=== PATIENT | female | born 1980 | race Hispanic/Latino ===

== ENCOUNTER 2021-04-26 14:15 | Emergency (ER) | payer OTHER ==
[2021-04-26] MEDS ORDERED: LORAZEPAM 2 MG/ML 1 ML VIAL IVP SCH (14:30)
[2021-04-26 14:34] LABS: APPEARANCE,URINE CLOUDY (CLEAR); BILIRUBIN,URINE NEGATIVE (NEGATIVE); COLOR,URINE YELLOW (YELLOW); GLUCOSE, URINE (UA) NEGATIVE (NEGATIVE); KETONES,URINE NEGATIVE (NEGATIVE); LEUKOCYTE ESTERASE ,URINE SMALL (NEGATIVE); NITRATE,URINE NEGATIVE (NEGATIVE); OCCULT BLOOD,URINE MODERATE (NEGATIVE); PROTEIN,URINE 100 mg/dL (NEGATIVE); UROBILINOGEN,URINE 0.2 mg/dL (0.2-1.0)
[2021-04-26] MEDS ORDERED: LEVETIRACETAM 500 MG/5 ML SD VIAL IV ONE (14:34)
[2021-04-26] MEDS ORDERED: LORAZEPAM 2 MG/ML 1 ML VIAL ONE (14:35)
[2021-04-26] MEDS ORDERED: 0.9%NACL 100ML 100 ML ONE (14:36)
[2021-04-26] MEDS ORDERED: 0.9%NACL 1000ML 1,000 ML IV ONE (14:39)
[2021-04-26 14:43] LABS: AMPHET/METH SCREEN,URINE NEGATIVE (NEGATIVE); BARBITURATE SCREEN, URINE NEGATIVE (NEGATIVE); BENZODIAZEPINES SCREEN,URINE NEGATIVE (NEGATIVE); CANNABINOID SCREEN,URINE NEGATIVE (NEGATIVE); COCAINE SCREEN,URINE NEGATIVE (NEGATIVE); OPIATE SCREEN,URINE NEGATIVE (NEGATIVE); PHENCYCLIDINE SCREEN,URINE NEGATIVE (NEGATIVE)
[2021-04-26 14:44] LABS: BACTERIA,URINE Few /HPF (None Seen); SQUAMOUS EPITHELIAL CELL,UR Few /HPF (0-2); WBC,URINE 26-50 /HPF (0-1)
[2021-04-26 14:45] LABS: TRANSITIONAL EPI CELLS,URINE Rare /HPF (None Seen)
[2021-04-26 14:47] LABS: EOSINOPHILS % (AUTO) 1.3 % (0.0-8.0); HEMATOCRIT 31.6 % (36-48); LYMPHOCYTES % (AUTO) 2.9 % (21.0-51.0); MEAN CORPUSCULAR HEMOGLOBIN 29.9 pg (27.0-33.0); MEAN CORPUSCULAR HGB CONC 34.8 g/dL (32.0-36.0); MEAN CORPUSCULAR VOLUME 85.9 fL (79-99); MONOCYTES % (AUTO) 2.9 % (3.0-13.0); NEUTROPHILS % (AUTO) 86.1 % (40.0-77.0); NUCLEATED RED BLOOD CELLS 0.3 % (0.0-0.19); PLATELET COUNT (AUTO) 19 K/uL (130-400); RED BLOOD CELL COUNT(AUTO) 3.68 MIL/uL (4.00-5.50); RED CELL DISTRIBUTION WIDTH 14.6 % (11.0-15.5); WHITE BLOOD COUNT (AUTO) 20.9 K/uL (4.8-10.8)
[2021-04-26 14:56] LABS: HCG,QUAL RESULT NEGATIVE (NEGATIVE)
[2021-04-26] MEDS ORDERED: CEFTRIAXONE 1G VIAL IVP SCH (15:00)
[2021-04-26] MEDS ORDERED: 0.9%NACL 1000ML 1,000 ML IV SCH ×2 (15:00→21:30)
[2021-04-26 15:07] LABS: ALBUMIN 2.3 g/dL (3.5-5.0); BILIRUBIN,TOTAL 1.9 mg/dL (0.2-1.0); CREATININE 3.3 mg/dL (0.5-1.5); POTASSIUM 3.6 mmol/L (3.5-5.1); TOTAL PROTEIN, SERUM 6.3 g/dL (6.0-8.3)
[2021-04-26] MEDS ORDERED: SODIUM CHLORIDE 3% 500 ML IV SCH (15:30)
[2021-04-26] MEDS ORDERED: 0.9%NACL 50ML 50 ML IV ONE (15:41)
[2021-04-26] MEDS ORDERED: MAG/ALUM/SIMETH 30 ML UDCUP PO ONE (17:30)
[2021-04-26] MEDS ORDERED: MAG/ALUM/SIMETH 30 ML UDCUP ONE (17:33)
[2021-04-26] MEDS ORDERED: LEVETIRACETAM 1,500 MG in 0.9%NACL 100ML 100 ML IV SCH (22:00)
[2021-04-26 23:55] VITALS: BP 108/48
== END 2021-04-27 01:40 | disposition short-term general hospital (02) ==
LOC: EDH 14:15
DX: G40.909 Epilepsy, unspecified, not intractable, without status epilepticus (principal); N39.0 Urinary tract infection, site not specified; E87.1 Hypo-osmolality and hyponatremia; N28.9 Disorder of kidney and ureter, unspecified; Z20.822 Contact with and (suspected) exposure to COVID-19; F41.9 Anxiety disorder, unspecified
CPT/HCPCS: 36415; 70450; 71045; 80053; 80305; 81001; 81025; 84484; 85025; 86140; 87088; 87635; 93005; 96365; 96366; 96375; 96376; 99285; C9803; J0696; J1953; J2060; J7030 ×2

== ENCOUNTER 2021-07-01 10:56 | Emergency (ER) | payer OTHER ==
[~2021-07-01] VITALS: Ht 160 cm; Wt 63.5 kg
[2021-07-01 11:23] LABS: APPEARANCE,URINE CLEAR (CLEAR); BASOPHILS % (AUTO) 1.9 % (0.0-5.0); BILIRUBIN,URINE NEGATIVE (NEGATIVE); COLOR,URINE YELLOW (YELLOW); EOSINOPHILS % (AUTO) 2.9 % (0.0-8.0); GLUCOSE, URINE (UA) NEGATIVE (NEGATIVE); HEMATOCRIT 35.7 % (36-48); KETONES,URINE NEGATIVE (NEGATIVE); LEUKOCYTE ESTERASE ,URINE NEGATIVE (NEGATIVE); LYMPHOCYTES % (AUTO) 51.9 % (21.0-51.0); MEAN CORPUSCULAR HEMOGLOBIN 30.5 pg (27.0-33.0); MEAN CORPUSCULAR HGB CONC 32.5 g/dL (32.0-36.0); MEAN CORPUSCULAR VOLUME 93.9 fL (79-99); MONOCYTES % (AUTO) 8.5 % (3.0-13.0); NEUTROPHILS % (AUTO) 34.6 % (40.0-77.0); NITRATE,URINE NEGATIVE (NEGATIVE); OCCULT BLOOD,URINE NEGATIVE (NEGATIVE); PLATELET COUNT (AUTO) 82 K/uL (130-400); PROTEIN,URINE NEGATIVE (NEGATIVE); RED CELL DISTRIBUTION WIDTH 13.6 % (11.0-15.5); UROBILINOGEN,URINE 0.2 mg/dL (0.2-1.0); WHITE BLOOD COUNT (AUTO) 4.8 K/uL (4.8-10.8)
[2021-07-01 11:29] LABS: HCG,QUAL RESULT NEGATIVE (NEGATIVE)
[2021-07-01 11:30] LABS: AMPHET/METH SCREEN,URINE NEGATIVE (NEGATIVE); BARBITURATE SCREEN, URINE NEGATIVE (NEGATIVE); BENZODIAZEPINES SCREEN,URINE NEGATIVE (NEGATIVE); CANNABINOID SCREEN,URINE NEGATIVE (NEGATIVE); COCAINE SCREEN,URINE NEGATIVE (NEGATIVE); OPIATE SCREEN,URINE NEGATIVE (NEGATIVE); PHENCYCLIDINE SCREEN,URINE NEGATIVE (NEGATIVE)
[2021-07-01 11:46] LABS: CREATININE 0.7 mg/dL (0.5-1.5); POTASSIUM 3.5 mmol/L (3.5-5.1)
[2021-07-01 11:50] LABS: ALBUMIN 3.4 g/dL (3.5-5.0); BILIRUBIN,TOTAL 0.6 mg/dL (0.2-1.0); TOTAL PROTEIN, SERUM 8.3 g/dL (6.0-8.3)
[2021-07-01] MEDS ORDERED: 0.9%NACL 1000ML 1,000 ML IV ONE (16:30)
[2021-07-01 19:13] VITALS: BP 134/81
== END 2021-07-01 19:23 | disposition home or self-care (01) ==
LOC: EDH 10:56
DX: F10.229 Alcohol dependence with intoxication, unspecified (principal); R55 Syncope and collapse; R56.9 Unspecified convulsions; D69.6 Thrombocytopenia, unspecified; F41.9 Anxiety disorder, unspecified; Y90.8 Blood alcohol level of 240 mg/100 ml or more
CPT/HCPCS: 36415; 80053; 80305; 81003; 81025; 85025; 96360; 96361; 99285; J7030

== ENCOUNTER 2022-01-16 22:57 | Emergency (ER) | payer OTHER ==
[~2022-01-16] VITALS: Ht 157.5 cm; Wt 68.0 kg
[2022-01-16 23:21] LABS: BASOPHILS % (AUTO) 1.1 % (0.0-5.0); EOSINOPHILS % (AUTO) 3.1 % (0.0-8.0); HEMATOCRIT 31.6 % (36-48); LYMPHOCYTES % (AUTO) 46.4 % (21.0-51.0); MEAN CORPUSCULAR HEMOGLOBIN 27.3 pg (27.0-33.0); MEAN CORPUSCULAR HGB CONC 33.2 g/dL (32.0-36.0); MEAN CORPUSCULAR VOLUME 82.3 fL (79-99); MONOCYTES % (AUTO) 4.4 % (3.0-13.0); NEUTROPHILS % (AUTO) 44.7 % (40.0-77.0); PLATELET COUNT (AUTO) 186 K/uL (130-400); RED BLOOD CELL COUNT(AUTO) 3.84 MIL/uL (4.00-5.50)
[2022-01-16 23:24] LABS: APPEARANCE,URINE CLEAR (CLEAR); BILIRUBIN,URINE NEGATIVE (NEGATIVE); COLOR,URINE COLORLESS (YELLOW); GLUCOSE, URINE (UA) NEGATIVE (NEGATIVE); KETONES,URINE NEGATIVE (NEGATIVE); LEUKOCYTE ESTERASE ,URINE NEGATIVE Leu/uL (NEGATIVE); NITRATE,URINE NEGATIVE (NEGATIVE); OCCULT BLOOD,URINE NEGATIVE (NEGATIVE); PROTEIN,URINE 50 mg/dL (NEGATIVE); UROBILINOGEN,URINE 0.2 mg/dL (0.2-1.0)
[2022-01-16 23:29] LABS: CREATININE 0.7 mg/dL (0.5-1.5); POTASSIUM 3.2 mmol/L (3.5-5.1)
[2022-01-16 23:35] LABS: ALBUMIN 3.1 g/dL (3.5-5.0); TOTAL PROTEIN, SERUM 8.2 g/dL (6.0-8.3)
[2022-01-17] MEDS ORDERED: POTASSIUM BICARB/CIT AC 25 MEQ TABLET.EFF ONE ×2 (00:08→00:14)
[2022-01-17] MEDS ORDERED: 0.9%NACL 1000ML 2,000 ML IV ONE (00:14)
[2022-01-17 00:53] LABS: ACETAMINOPHEN < 1 mcg/mL (10-30); SALICYLATE < 2.8 mg/dL (2.8-20.0)
[2022-01-17] MEDS ORDERED: POTASSIUM BICARB/CIT AC 25 MEQ TABLET.EFF PO ONE (01:00)
[2022-01-17] MEDS ORDERED: 0.9%NACL 1000ML 1,000 ML IV SCH ×2 (01:00)
[2022-01-17 01:10] VITALS: BP 129/78
[2022-01-17 01:16] LABS: AMPHET/METH SCREEN,URINE NEGATIVE (NEGATIVE); BARBITURATE SCREEN, URINE NEGATIVE (NEGATIVE); BENZODIAZEPINES SCREEN,URINE NEGATIVE (NEGATIVE); CANNABINOID SCREEN,URINE NEGATIVE (NEGATIVE); COCAINE SCREEN,URINE NEGATIVE (NEGATIVE); PHENCYCLIDINE SCREEN,URINE NEGATIVE (NEGATIVE)
== END 2022-01-17 01:29 | disposition left against medical advice (07) ==
LOC: EDH 22:57 → EDBD 22:57 → EDH 01-17 01:29
DX: G40.909 Epilepsy, unspecified, not intractable, without status epilepticus (principal); F10.229 Alcohol dependence with intoxication, unspecified; Z20.822 Contact with and (suspected) exposure to COVID-19; I10 Essential (primary) hypertension; F41.9 Anxiety disorder, unspecified
CPT/HCPCS: 99285; 71045; 87635; 83615; 84484; 80053; 80305; 85025; 83605; 36415; 93005; 84145; 81003; 96360; G0481; C9803; J7030

== ENCOUNTER 2022-04-27 18:13 | Emergency (ER) | payer OTHER ==
[2022-04-27 19:31] LABS: BASOPHILS % (AUTO) 0.5 % (0.0-5.0); EOSINOPHILS % (AUTO) 0.2 % (0.0-8.0); HEMATOCRIT 31.6 % (36-48); LYMPHOCYTES % (AUTO) 5.7 % (21.0-51.0); MEAN CORPUSCULAR HEMOGLOBIN 27.1 pg (27.0-33.0); MEAN CORPUSCULAR HGB CONC 33.2 g/dL (32.0-36.0); MEAN CORPUSCULAR VOLUME 81.7 fL (79-99); MONOCYTES % (AUTO) 10.8 % (3.0-13.0); NEUTROPHILS % (AUTO) 81.4 % (40.0-77.0); PLATELET COUNT (AUTO) 86 K/uL (130-400); RED BLOOD CELL COUNT(AUTO) 3.87 MIL/uL (4.00-5.50); RED CELL DISTRIBUTION WIDTH 20.7 % (11.0-15.5); WHITE BLOOD COUNT (AUTO) 16.6 K/uL (4.8-10.8)
[2022-04-27 19:40] LABS: CREATININE 0.8 mg/dL (0.5-1.5); POTASSIUM 3.3 mmol/L (3.5-5.1)
[2022-04-27 19:44] LABS: ALBUMIN 2.1 g/dL (3.5-5.0); TOTAL PROTEIN, SERUM 7.5 g/dL (6.0-8.3)
[2022-04-27] MEDS ORDERED: POTASSIUM BICARB/CIT AC 25 MEQ TABLET.EFF PO ONE (20:30)
[2022-04-27 21:54] LABS: AMPHET/METH SCREEN,URINE NEGATIVE (NEGATIVE); BARBITURATE SCREEN, URINE NEGATIVE (NEGATIVE); BENZODIAZEPINES SCREEN,URINE NEGATIVE (NEGATIVE); CANNABINOID SCREEN,URINE NEGATIVE (NEGATIVE); COCAINE SCREEN,URINE NEGATIVE (NEGATIVE); OPIATE SCREEN,URINE NEGATIVE (NEGATIVE); PHENCYCLIDINE SCREEN,URINE NEGATIVE (NEGATIVE)
[2022-04-27 23:16] LABS: APPEARANCE,URINE CLEAR (CLEAR); BILIRUBIN,URINE NEGATIVE (NEGATIVE); COLOR,URINE YELLOW (YELLOW); GLUCOSE, URINE (UA) NEGATIVE (NEGATIVE); KETONES,URINE NEGATIVE (NEGATIVE); LEUKOCYTE ESTERASE ,URINE NEGATIVE Leu/uL (NEGATIVE); NITRATE,URINE NEGATIVE (NEGATIVE); OCCULT BLOOD,URINE NEGATIVE (NEGATIVE); PH,URINE 6.5 (5.0-8.0); PROTEIN,URINE 100 mg/dL (NEGATIVE); UROBILINOGEN,URINE 0.2 mg/dL (0.2-1.0)
[2022-04-27 23:20] LABS: BACTERIA,URINE RARE /HPF (None Seen); RBC,URINE 0-1 /HPF (0-1); SQUAMOUS EPITHELIAL CELL,UR FEW /HPF (0-2)
[2022-04-28 00:10] VITALS: BP 120/79
[2022-04-28] MEDS ORDERED: IBUPROFEN 600 MG TABLET PO ONE (00:30)
[2022-04-28] MEDS ORDERED: IBUP-2070 PO (00:45)
== END 2022-04-28 00:59 | disposition home or self-care (01) ==
LOC: EDH 18:13
DX: S49.92XA Unspecified injury of left shoulder and upper arm, initial encounter (principal); J10.1 Influenza due to other identified influenza virus with other respiratory manifestations; Z20.822 Contact with and (suspected) exposure to COVID-19; X58.XXXA Exposure to other specified factors, initial encounter; Y93.89 Activity, other specified; Y92.89 Other specified places as the place of occurrence of the external cause; Y99.8 Other external cause status
CPT/HCPCS: 99285; 71045; 87635; 82550; 80053; 80305; 84703; 85025; 87040 ×2; 87804 ×2; 83605; 36415; 73630 ×2; 73060; 73030 ×2; 81001; C9803

== ENCOUNTER 2022-10-17 14:23 | Emergency (ER) | payer OTHER ==
[~2022-10-17] VITALS: Ht 167.6 cm; Wt 74.8 kg
[~2022-10-17 14:23] MED LIST: IBUP-2070 PO
[2022-10-17 15:33] LABS: BASOPHILS % (AUTO) 2.1 % (0.0-5.0); EOSINOPHILS % (AUTO) 1.3 % (0.0-8.0); HEMATOCRIT 34.3 % (36-48); MEAN CORPUSCULAR HEMOGLOBIN 30.9 pg (27.0-33.0); MEAN CORPUSCULAR HGB CONC 32.9 g/dL (32.0-36.0); MEAN CORPUSCULAR VOLUME 93.7 fL (79-99); MONOCYTES % (AUTO) 7.9 % (3.0-13.0); NEUTROPHILS % (AUTO) 56.7 % (40.0-77.0); PLATELET COUNT (AUTO) 58 K/uL (130-400); RED BLOOD CELL COUNT(AUTO) 3.66 MIL/uL (4.00-5.50); RED CELL DISTRIBUTION WIDTH 16.6 % (11.0-15.5); WHITE BLOOD COUNT (AUTO) 3.8 K/uL (4.8-10.8)
[2022-10-17 15:52] LABS: CREATININE 0.7 mg/dL (0.5-1.5); POTASSIUM 3.6 mmol/L (3.5-5.1)
[2022-10-17 15:54] LABS: ALBUMIN 2.7 g/dL (3.5-5.0); TOTAL PROTEIN, SERUM 8.5 g/dL (6.0-8.3)
[2022-10-17] MEDS ORDERED: LACTATED RINGERS 1000ML 1,000 ML IV STA (16:06)
[2022-10-17 18:48] VITALS: BP 140/76
== END 2022-10-17 19:21 | disposition home or self-care (01) ==
LOC: EDH 14:23
DX: S09.8XXA Other specified injuries of head, initial encounter (principal); F10.129 Alcohol abuse with intoxication, unspecified; F10.10 Alcohol abuse, uncomplicated; M79.652 Pain in left thigh; I10 Essential (primary) hypertension; F41.9 Anxiety disorder, unspecified; F32.A Depression, unspecified; Y08.89XA Assault by other specified means, initial encounter; Y93.89 Activity, other specified; Y92.89 Other specified places as the place of occurrence of the external cause; Y99.8 Other external cause status
CPT/HCPCS: 99284; 96360; 70450; 71045; 96361; 80053; 85025; 36415; J7120

== ENCOUNTER 2023-01-14 17:00 | Inpatient (IN) | payer OTHER ==
[~2023-01-14] VITALS: Ht 157.5 cm; Wt 67.0 kg
[2023-01-14 17:25] LABS: BASOPHILS # (AUTO) 0.05 K/uL (0.00-0.20); BASOPHILS % (AUTO) 1.2 % (0.0-5.0); EOSINOPHILS # (AUTO) 0.07 K/uL (0.00-0.70); EOSINOPHILS % (AUTO) 1.7 % (0.0-8.0); HEMATOCRIT 27.4 % (36-48); IMMATURE GRANULOCYTE ABSOLUTE 0.01 K/uL (0-1); LYMPHOCYTES # (AUTO) 1.1 K/uL (1.0-4.8); LYMPHOCYTES % (AUTO) 27.8 % (21.0-51.0); MEAN CORPUSCULAR HEMOGLOBIN 33.3 pg (27.0-33.0); MEAN CORPUSCULAR HGB CONC 34.3 g/dL (32.0-36.0); MEAN CORPUSCULAR VOLUME 97.2 fL (79-99); MONOCYTES # (AUTO) 0.3 K/uL (0.1-1.0); MONOCYTES % (AUTO) 8.1 % (3.0-13.0); NEUTROPHILS # (AUTO) 2.5 K/uL (1.8-7.7); PLATELET COUNT (AUTO) 25 K/uL (130-400); RED BLOOD CELL COUNT(AUTO) 2.82 MIL/uL (4.00-5.50); RED CELL DISTRIBUTION WIDTH 16.4 % (11.0-15.5); WHITE BLOOD COUNT (AUTO) 4.1 K/uL (4.8-10.8)
[2023-01-14 17:34] LABS: CREATININE 0.9 mg/dL (0.5-1.5); POTASSIUM 3.2 mmol/L (3.5-5.1)
[2023-01-14 17:38] LABS: INR 1.44 (0.85-1.15); PROTHROMBIN TIME 16.3 SEC (9.6-11.6)
[2023-01-14 17:39] LABS: ALBUMIN 2.3 g/dL (3.5-5.0); BILIRUBIN,TOTAL 4.1 mg/dL (0.2-1.0); TOTAL PROTEIN, SERUM 7.6 g/dL (6.0-8.3)
[2023-01-14 17:55] LABS: ADD UA MICROSCOPIC YES; APPEARANCE,URINE CLEAR (CLEAR); BILIRUBIN,URINE NEGATIVE (NEGATIVE); COLOR,URINE YELLOW (YELLOW); GLUCOSE, URINE (UA) NEGATIVE (NEGATIVE); KETONES,URINE NEGATIVE (NEGATIVE); LEUKOCYTE ESTERASE ,URINE NEGATIVE Leu/uL (NEGATIVE); NITRATE,URINE NEGATIVE (NEGATIVE); OCCULT BLOOD,URINE NEGATIVE (NEGATIVE); PROTEIN,URINE 20 mg/dL (NEGATIVE); UROBILINOGEN,URINE 0.2 mg/dL (0.2-1.0)
[2023-01-14 17:56] LABS: SQUAMOUS EPITHELIAL CELL,UR RARE /HPF (0-2); WBC,URINE 0-1 /HPF (0-1)
[2023-01-14] MEDS: OXYMETAZOLINE HCL SPRAY 15 ML BOTTLE EN SCH (20:19)
[2023-01-14] MEDS ORDERED: IOHEXOL-350 75 ML VIAL IV ONE (20:21)
[2023-01-14] MEDS ORDERED: PHYTONADIONE 10 MG/1 ML AMP SQ ONE (20:30)
[2023-01-14] MEDS ORDERED: 0.9%NACL 1000ML 1,000 ML IV ONE (20:30)
[2023-01-14 21:03] LABS: SALICYLATE < 2.8 mg/dL (2.8-20.0)
[2023-01-14 21:04] LABS: ACETAMINOPHEN < 1 mcg/mL (10-30)
[2023-01-14 21:05] LABS: ALCOHOL, BLOOD 423 mg/dL (0-10)
[2023-01-14] MEDS ORDERED: ONDANSETRON 4MG INJ IV PRN (22:30)
[2023-01-14] MEDS ORDERED: PHARMACY COMMUNICATION MISC PRN (22:30)
[2023-01-14] MEDS ORDERED: HYDROCODONE/ACETAMINOPHEN 5/325 MG TAB PO PRN (22:30)
[2023-01-14] MEDS ORDERED: ACETAMINOPHEN 325 MG TAB PO PRN (22:30)
[2023-01-14] MEDS ORDERED: HYDROMORPHONE 1 MG INJ IV PRN (22:30)
[2023-01-14] MEDS ORDERED: OCTREOTIDE ACETATE 100 MCG/ML AMP IV ONE (22:30)
[2023-01-15] VITALS (9 sets, daily range): BP systolic 96–149; BP diastolic 58–89; PULSE 75–89; RESP 18–20; O2SAT 98–99
[2023-01-15] MEDS ORDERED: OCTREOTIDE ACETATE 200 MCG/ML 5 ML VIAL ONE (00:47)
[2023-01-15] MEDS ORDERED: M.V.I. IV [ADULT] 10 ML VIAL IV ONE (00:50)
[2023-01-15] MEDS ORDERED: THIAMINE HCL 100 MG/ML 2ML VIAL ONE (00:54)
[2023-01-15] MEDS ORDERED: HYDR-3421 PO (00:59)
[2023-01-15] MEDS ORDERED: FLUO20CA30 PO (00:59)
[2023-01-15] MEDS: CHLORDIAZEPOXIDE HCL 25 MG CAP PO SCH ×2 (01:37→05:52)
[2023-01-15] MEDS: THIAMINE HCL 100 MG, FOLIC ACID 1 MG, M.V.I. IV [ADULT] 10 ML in 0.9%NACL 1000ML 1,000 ML IV SCH ×2 (01:37→17:55)
[2023-01-15] MEDS: OCTREOTIDE ACETATE 1,250 MCG in 0.9% NACL 250ML 250 ML IV SCH (01:38)
[2023-01-15 02:09] LABS: BASOPHILS # (AUTO) 0.06 K/uL (0.00-0.20); BASOPHILS % (AUTO) 1.3 % (0.0-5.0); EOSINOPHILS % (AUTO) 2.1 % (0.0-8.0); HEMATOCRIT 28.4 % (36-48); IMMATURE GRANULOCYTE ABSOLUTE 0.02 K/uL (0-1); LYMPHOCYTES % (AUTO) 41.9 % (21.0-51.0); MEAN CORPUSCULAR HEMOGLOBIN 33.4 pg (27.0-33.0); MEAN CORPUSCULAR HGB CONC 34.2 g/dL (32.0-36.0); MEAN CORPUSCULAR VOLUME 97.9 fL (79-99); MONOCYTES # (AUTO) 0.3 K/uL (0.1-1.0); MONOCYTES % (AUTO) 6.9 % (3.0-13.0); NEUTROPHILS # (AUTO) 2.3 K/uL (1.8-7.7); NEUTROPHILS % (AUTO) 47.4 % (40.0-77.0); PLATELET COUNT (AUTO) 31 K/uL (130-400); RED CELL DISTRIBUTION WIDTH 16.7 % (11.0-15.5); WHITE BLOOD COUNT (AUTO) 4.8 K/uL (4.8-10.8)
[2023-01-15 02:26] LABS: CREATININE 0.7 mg/dL (0.5-1.5); MAGNESIUM 1.1 mg/dL (1.80-2.40); PHOSPHORUS 3.8 mg/dL (2.5-4.9); POTASSIUM 3.4 mmol/L (3.5-5.1)
[2023-01-15 02:44] LABS: % IRON SATURATION 49.1 % (22-44)
[2023-01-15] MEDS: ACETAMINOPHEN 325 MG TAB PO PRN ×2 (06:30→15:02)
[2023-01-15 06:57] LABS: HEMATOCRIT 27.1 % (36-48)
[2023-01-15] MEDS: PANTOPRAZOLE 40 MG/VIAL IVP SCH ×2 (08:51→19:24)
[2023-01-15 13:24] LABS: HEMATOCRIT 27.3 % (36-48)
[2023-01-15] MEDS: KCL 20 MEQ ERTAB PO PRN ×2 (15:39→18:21)
[2023-01-15] MEDS: MAGNESIUM 2GM PREMIX 50ML 50 ML IV PRN (16:28)
[2023-01-15 18:18] LABS: HEMATOCRIT 27.1 % (36-48); MEAN CORPUSCULAR HGB CONC 33.2 g/dL (32.0-36.0); MEAN CORPUSCULAR VOLUME 102.3 fL (79-99); PLATELET COUNT (AUTO) 51 K/uL (130-400); RED BLOOD CELL COUNT(AUTO) 2.65 MIL/uL (4.00-5.50); RED CELL DISTRIBUTION WIDTH 16.6 % (11.0-15.5); WHITE BLOOD COUNT (AUTO) 2.8 K/uL (4.8-10.8)
[2023-01-15] MEDS: OXYMETAZOLINE HCL SPRAY 15 ML BOTTLE EN SCH (19:22)
[2023-01-15 20:03] LABS: BAND NEUTROPHILS % (MANUAL) 2 % (0-2); EOSINOPHILS % (MANUAL) 2 % (1-6); LYMPHOCYTES % (MANUAL) 14 % (22-44); MONOCYTES % (MANUAL) 3 % (2-9); SEGMENTED NEUTROPHILS % 79 % (40-70); TOTAL CELLS COUNTED 100
[2023-01-15 20:05] LABS: MAN.DIFF COMMENT-IMPRESSION MANUAL DIFFERENTIAL
[2023-01-15 20:07] LABS: PLATELET MORPHOLOGY COMMENT DECREASED
[2023-01-16] VITALS (24 sets, daily range): BP systolic 109–149; BP diastolic 60–90; PULSE 71–104; RESP 16–20; O2SAT 98
[2023-01-16] MEDS: THIAMINE HCL 100 MG, FOLIC ACID 1 MG, M.V.I. IV [ADULT] 10 ML in 0.9%NACL 1000ML 1,000 ML IV SCH ×2 (00:30→18:22)
[2023-01-16 00:42] LABS: HEMATOCRIT 27.5 % (36-48)
[2023-01-16 05:36] LABS: CREATININE 0.7 mg/dL (0.5-1.5); MAGNESIUM 0.8 mg/dL (1.80-2.40); POTASSIUM 3.7 mmol/L (3.5-5.1)
[2023-01-16] MEDS: PANTOPRAZOLE 40 MG/VIAL IVP SCH (08:50)
[2023-01-16] MEDS: OXYMETAZOLINE HCL SPRAY 15 ML BOTTLE EN SCH ×2 (09:07→18:45)
[2023-01-16] MEDS: OCTREOTIDE ACETATE 1,250 MCG in 0.9% NACL 250ML 250 ML IV SCH (09:07)
[2023-01-16] MEDS ORDERED: COMPOUND IV REFRIGERATED 1 EACH IVSOLN MISC PRN (09:30)
[2023-01-16] MEDS ORDERED: PROPOFOL 10 MG/ML 20ML VIAL IV ONE ×2 (12:44→12:49)
[2023-01-16] MEDS ORDERED: MIDAZOLAM HCL 1 MG/ML 2ML VIAL ONE (12:44)
[2023-01-16] MEDS: CHLORDIAZEPOXIDE HCL 25 MG CAP PO PRN (18:22)
[2023-01-16] MEDS: MAGNESIUM 2GM PREMIX 50ML 50 ML IV PRN (20:38)
[2023-01-16] MEDS: PANTOPRAZOLE 40 MG TAB DR PO SCH (20:38)
[2023-01-16] MEDS: LORAZEPAM 2 MG/ML 1 ML VIAL IVP PRN (22:39)
[2023-01-17] VITALS (7 sets, daily range): BP systolic 104–121; BP diastolic 62–85; PULSE 53–109; RESP 18–22; O2SAT 99
[2023-01-17] MEDS: LORAZEPAM 2 MG/ML 1 ML VIAL IVP PRN ×4 (01:39→22:42)
[2023-01-17] MEDS: CHLORDIAZEPOXIDE HCL 25 MG CAP PO PRN ×2 (02:10→09:49)
[2023-01-17] MEDS: OXYMETAZOLINE HCL SPRAY 15 ML BOTTLE EN SCH (07:52)
[2023-01-17] MEDS: PANTOPRAZOLE 40 MG TAB DR PO SCH ×2 (08:36→21:25)
[2023-01-17] MEDS: MAGNESIUM 2GM PREMIX 50ML 50 ML IV PRN (08:37)
[2023-01-17] MEDS: KCL 20 MEQ ERTAB PO PRN ×2 (08:37→16:11)
[2023-01-17 10:20] LABS: BASOPHILS # (AUTO) 0.03 K/uL (0.00-0.20); BASOPHILS % (AUTO) 0.9 % (0.0-5.0); EOSINOPHILS # (AUTO) 0.05 K/uL (0.00-0.70); EOSINOPHILS % (AUTO) 1.5 % (0.0-8.0); HEMATOCRIT 32.1 % (36-48); IMMATURE GRANULOCYTE ABSOLUTE 0.01 K/uL (0-1); LYMPHOCYTES # (AUTO) 0.6 K/uL (1.0-4.8); LYMPHOCYTES % (AUTO) 17.3 % (21.0-51.0); MEAN CORPUSCULAR HEMOGLOBIN 33.4 pg (27.0-33.0); MEAN CORPUSCULAR HGB CONC 33.6 g/dL (32.0-36.0); MEAN CORPUSCULAR VOLUME 99.4 fL (79-99); MONOCYTES # (AUTO) 0.3 K/uL (0.1-1.0); MONOCYTES % (AUTO) 9.1 % (3.0-13.0); NEUTROPHILS # (AUTO) 2.4 K/uL (1.8-7.7); NEUTROPHILS % (AUTO) 70.9 % (40.0-77.0); PLATELET COUNT (AUTO) 56 K/uL (130-400); RED BLOOD CELL COUNT(AUTO) 3.23 MIL/uL (4.00-5.50); WHITE BLOOD COUNT (AUTO) 3.4 K/uL (4.8-10.8)
[2023-01-17] MEDS ORDERED: LORAZEPAM 0.5 MG TABLET PO ONE (10:30)
[2023-01-17 10:44] LABS: POTASSIUM 3.4 mmol/L (3.5-5.1)
[2023-01-17 10:49] LABS: ALBUMIN 2.2 g/dL (3.5-5.0); BILIRUBIN,TOTAL 5.2 mg/dL (0.2-1.0); TOTAL PROTEIN, SERUM 7.4 g/dL (6.0-8.3)
[2023-01-17] MEDS: LACTULOSE 20 GM/30 ML UDCUP PO SCH ×3 (11:08→21:24)
[2023-01-17] MEDS: CEFTRIAXONE 2GM VIAL IVPB SCH (18:41)
[2023-01-17 18:49] LABS: SARS-CoV-2, RNA, NAAT NEGATIVE SARS CoV-2 (NEGATIVE)
[2023-01-17 19:05] LABS: ABG BASE EXCESS -2.3 mmol/L (-2.0-3.0); ABG HCO3 18.9 mmol/L (21.0-28.0); ABG OXYGEN SATURATION 93.4 % (95.0-99.0); ABG PCO2 23 mmHg (32-45); ABG PH 7.531 (7.35-7.450); CARBON MONOXIDE 0.3; HHb 6.5; PO2, ARTERIAL BG 67.4 mmHg (83.0-108.0); VENT MODE, BG ROOM AIR (ROOM AIR)
[2023-01-17 19:31] LABS: INFLUENZA TYPE A Negative For Type A (NEGATIVE); INFLUENZA TYPE B Negative For Type B (NEGATIVE)
[2023-01-17] MEDS ORDERED: 0.9%NACL 50ML IV SCH (20:30)
[2023-01-17] MEDS ORDERED: CALCIUM GLUC 1GM/10ML VIAL IVPB SCH (20:30)
[2023-01-17] MEDS ORDERED: THIAMINE HCL 100 MG/ML 2ML VIAL IVP ONE (20:30)
[2023-01-17] MEDS: SODIUM BICARB 8.4% 50ML SYRINGE IVP SCH (21:25)
[2023-01-18] VITALS (8 sets, daily range): BP systolic 110–141; BP diastolic 69–79; PULSE 91–111; RESP 18–20; O2SAT 93–99
[2023-01-18] MEDS: CHLORDIAZEPOXIDE HCL 25 MG CAP PO PRN (00:13)
[2023-01-18] MEDS: LORAZEPAM 2 MG/ML 1 ML VIAL IVP PRN ×3 (03:33→20:12)
[2023-01-18 04:22] LABS: BASOPHILS # (AUTO) 0.05 K/uL (0.00-0.20); BASOPHILS % (AUTO) 1.1 % (0.0-5.0); EOSINOPHILS # (AUTO) 0.11 K/uL (0.00-0.70); EOSINOPHILS % (AUTO) 2.4 % (0.0-8.0); HEMATOCRIT 34.1 % (36-48); IMMATURE GRANULOCYTE ABSOLUTE 0.02 K/uL (0-1); LYMPHOCYTES # (AUTO) 1.3 K/uL (1.0-4.8); LYMPHOCYTES % (AUTO) 28.1 % (21.0-51.0); MEAN CORPUSCULAR HEMOGLOBIN 33.6 pg (27.0-33.0); MEAN CORPUSCULAR HGB CONC 33.4 g/dL (32.0-36.0); MEAN CORPUSCULAR VOLUME 100.6 fL (79-99); MONOCYTES # (AUTO) 0.6 K/uL (0.1-1.0); MONOCYTES % (AUTO) 13.9 % (3.0-13.0); NEUTROPHILS # (AUTO) 2.5 K/uL (1.8-7.7); NEUTROPHILS % (AUTO) 54.1 % (40.0-77.0); PLATELET COUNT (AUTO) 56 K/uL (130-400); RED BLOOD CELL COUNT(AUTO) 3.39 MIL/uL (4.00-5.50); RED CELL DISTRIBUTION WIDTH 16.3 % (11.0-15.5); WHITE BLOOD COUNT (AUTO) 4.6 K/uL (4.8-10.8)
[2023-01-18 04:47] LABS: ALBUMIN 2.3 g/dL (3.5-5.0); BILIRUBIN,TOTAL 5.8 mg/dL (0.2-1.0); CREATININE 0.8 mg/dL (0.5-1.5); TOTAL PROTEIN, SERUM 7.6 g/dL (6.0-8.3)
[2023-01-18] MEDS: POTASSIUM CHLORIDE 20MEQ/100ML 100 ML IV PRN (05:18)
[2023-01-18] MEDS: PANTOPRAZOLE 40 MG TAB DR PO SCH ×2 (10:31→20:24)
[2023-01-18] MEDS: KCL 20 MEQ ERTAB PO PRN ×2 (10:31→18:21)
[2023-01-18] MEDS: LACTULOSE 20 GM/30 ML UDCUP PO SCH ×3 (10:33→20:24)
[2023-01-18] MEDS: OLANZAPINE ODT 5 MG TAB SL SCH ×2 (18:19→20:12)
[2023-01-18] MEDS: CEFTRIAXONE 2GM VIAL IVPB SCH (18:19)
[2023-01-18] MEDS: SODIUM BICARB 8.4% 50ML SYRINGE IVP SCH (19:45)
[2023-01-18] MEDS: MAGNESIUM 2GM PREMIX 50ML 50 ML IV PRN (20:13)
[2023-01-19] VITALS (8 sets, daily range): BP systolic 91–128; BP diastolic 54–88; PULSE 66–104; RESP 18–22; O2SAT 97
[2023-01-19] MEDS: LORAZEPAM 2 MG/ML 1 ML VIAL IVP PRN ×2 (00:18→20:12)
[2023-01-19] MEDS: CHLORDIAZEPOXIDE HCL 25 MG CAP PO PRN ×2 (02:18→18:04)
[2023-01-19 04:15] LABS: BASOPHILS # (AUTO) 0.07 K/uL (0.00-0.20); BASOPHILS % (AUTO) 1.4 % (0.0-5.0); EOSINOPHILS # (AUTO) 0.14 K/uL (0.00-0.70); EOSINOPHILS % (AUTO) 2.9 % (0.0-8.0); HEMATOCRIT 31.4 % (36-48); IMMATURE GRANULOCYTE ABSOLUTE 0.03 K/uL (0-1); LYMPHOCYTES # (AUTO) 1.1 K/uL (1.0-4.8); LYMPHOCYTES % (AUTO) 22.2 % (21.0-51.0); MEAN CORPUSCULAR HEMOGLOBIN 33.3 pg (27.0-33.0); MEAN CORPUSCULAR HGB CONC 32.5 g/dL (32.0-36.0); MEAN CORPUSCULAR VOLUME 102.6 fL (79-99); MONOCYTES # (AUTO) 0.7 K/uL (0.1-1.0); NEUTROPHILS # (AUTO) 2.9 K/uL (1.8-7.7); NEUTROPHILS % (AUTO) 58.9 % (40.0-77.0); PLATELET COUNT (AUTO) 50 K/uL (130-400); RED BLOOD CELL COUNT(AUTO) 3.06 MIL/uL (4.00-5.50); RED CELL DISTRIBUTION WIDTH 17.6 % (11.0-15.5); WHITE BLOOD COUNT (AUTO) 4.9 K/uL (4.8-10.8)
[2023-01-19 04:23] LABS: POTASSIUM 3.4 mmol/L (3.5-5.1)
[2023-01-19] MEDS: POTASSIUM CHLORIDE 10% ELIXIR 20 MEQ/15 ML UDCUP PO PRN (05:02)
[2023-01-19] MEDS: OLANZAPINE ODT 5 MG TAB SL SCH ×3 (05:03→20:12)
[2023-01-19] MEDS: LACTULOSE 20 GM/30 ML UDCUP PO SCH ×3 (07:59→20:12)
[2023-01-19] MEDS: MULTIVITAMIN TABLET PO SCH (07:59)
[2023-01-19] MEDS: PANTOPRAZOLE 40 MG TAB DR PO SCH ×2 (07:59→20:12)
[2023-01-19] MEDS: THIAMINE HCL 100 MG TABLET PO SCH (07:59)
[2023-01-19] MEDS: KCL 20 MEQ ERTAB PO PRN ×2 (08:02→08:03)
[2023-01-19] MEDS: MAGNESIUM 2GM PREMIX 50ML 50 ML IV PRN (15:11)
[2023-01-19] MEDS: CEFTRIAXONE 2GM VIAL IVPB SCH (17:58)
[2023-01-19] MEDS: SODIUM BICARB 8.4% 50ML SYRINGE IVP SCH ×2 (20:30→20:57)
[2023-01-20] VITALS (7 sets, daily range): BP systolic 92–138; BP diastolic 56–78; PULSE 68–94; RESP 16–22; O2SAT 96–97
[2023-01-20] MEDS: LORAZEPAM 2 MG/ML 1 ML VIAL IVP PRN ×3 (00:08→21:24)
[2023-01-20] MEDS: CHLORDIAZEPOXIDE HCL 25 MG CAP PO PRN ×2 (03:35→19:42)
[2023-01-20 05:20] LABS: BASOPHILS # (AUTO) 0.07 K/uL (0.00-0.20); BASOPHILS % (AUTO) 1.5 % (0.0-5.0); EOSINOPHILS # (AUTO) 0.14 K/uL (0.00-0.70); HEMATOCRIT 30.9 % (36-48); IMMATURE GRANULOCYTE ABSOLUTE 0.02 K/uL (0-1); LYMPHOCYTES # (AUTO) 0.9 K/uL (1.0-4.8); LYMPHOCYTES % (AUTO) 19.6 % (21.0-51.0); MEAN CORPUSCULAR HEMOGLOBIN 34.6 pg (27.0-33.0); MONOCYTES # (AUTO) 0.7 K/uL (0.1-1.0); MONOCYTES % (AUTO) 14.2 % (3.0-13.0); NEUTROPHILS # (AUTO) 2.9 K/uL (1.8-7.7); NEUTROPHILS % (AUTO) 61.3 % (40.0-77.0); PLATELET COUNT (AUTO) 59 K/uL (130-400); RED BLOOD CELL COUNT(AUTO) 2.86 MIL/uL (4.00-5.50); RED CELL DISTRIBUTION WIDTH 18.2 % (11.0-15.5); WHITE BLOOD COUNT (AUTO) 4.7 K/uL (4.8-10.8)
[2023-01-20 05:39] LABS: ALBUMIN 2.1 g/dL (3.5-5.0); BILIRUBIN,TOTAL 5.1 mg/dL (0.2-1.0); CREATININE 0.9 mg/dL (0.5-1.5); MAGNESIUM 1.7 mg/dL (1.80-2.40); POTASSIUM 3.7 mmol/L (3.5-5.1); TOTAL PROTEIN, SERUM 7.4 g/dL (6.0-8.3)
[2023-01-20] MEDS: LACTULOSE 20 GM/30 ML UDCUP PO SCH ×3 (06:31→21:24)
[2023-01-20] MEDS: OLANZAPINE ODT 5 MG TAB SL SCH ×3 (06:31→21:53)
[2023-01-20] MEDS: MAGNESIUM 2GM PREMIX 50ML 50 ML IV PRN (06:40)
[2023-01-20] MEDS: THIAMINE HCL 100 MG TABLET PO SCH (07:29)
[2023-01-20] MEDS: PANTOPRAZOLE 40 MG TAB DR PO SCH ×2 (07:29→21:24)
[2023-01-20] MEDS: MULTIVITAMIN TABLET PO SCH (07:30)
[2023-01-20] MEDS ORDERED: CHLORDIAZEPOXIDE HCL 25 MG CAP PO ONE (09:00)
[2023-01-20] MEDS: DEXTROSE 5%-WATER 1,000 ML IV SCH ×2 (14:10→21:52)
[2023-01-20] MEDS: CEFTRIAXONE 2GM VIAL IVPB SCH (14:12)
[2023-01-20] MEDS: SODIUM BICARB 8.4% 50ML SYRINGE IVP SCH (20:30)
[2023-01-20 21:07] LABS: % IRON SATURATION 28.1 % (22-44)
[2023-01-21 00:03] VITALS: BP 97/70; PULSE 90; RESP 20
[2023-01-21 03:22] LABS: CHLORIDE,URINE RANDOM 215 mmol/L (110-250); CREATININE,URINE RANDOM 182 mg/dL (30-135); POTASSIUM,URINE RANDOM 42 mmol/L (25-125); SODIUM,URINE RANDOM 140 mmol/l (40-220)
[2023-01-21 03:23] LABS: APPEARANCE,URINE CLEAR (CLEAR); BILIRUBIN,URINE MODERATE mg/dL (NEGATIVE); COLOR,URINE YELLOW (YELLOW); GLUCOSE, URINE (UA) NEGATIVE (NEGATIVE); KETONES,URINE 5 mg/dL (NEGATIVE); LEUKOCYTE ESTERASE ,URINE NEGATIVE Leu/uL (NEGATIVE); NITRATE,URINE NEGATIVE (NEGATIVE); OCCULT BLOOD,URINE NEGATIVE (NEGATIVE); PROTEIN,URINE 100 mg/dL (NEGATIVE)
[2023-01-21 03:25] LABS: ADD UA MICROSCOPIC YES
[2023-01-21 03:26] LABS: MUCUS,URINE RARE LPF (None Seen); SQUAMOUS EPITHELIAL CELL,UR FEW /HPF (0-2); TRANSITIONAL EPI CELLS,URINE RARE /HPF (None Seen)
[2023-01-21 04:00] VITALS: BP 131/83; PULSE 88; RESP 20
[2023-01-21 04:38] LABS: BASOPHILS # (AUTO) 0.07 K/uL (0.00-0.20); BASOPHILS % (AUTO) 1.4 % (0.0-5.0); EOSINOPHILS # (AUTO) 0.15 K/uL (0.00-0.70); HEMATOCRIT 30.6 % (36-48); IMMATURE GRANULOCYTE ABSOLUTE 0.02 K/uL (0-1); LYMPHOCYTES # (AUTO) 1.1 K/uL (1.0-4.8); LYMPHOCYTES % (AUTO) 22.1 % (21.0-51.0); MEAN CORPUSCULAR HEMOGLOBIN 33.7 pg (27.0-33.0); MEAN CORPUSCULAR VOLUME 105.2 fL (79-99); MONOCYTES # (AUTO) 0.8 K/uL (0.1-1.0); MONOCYTES % (AUTO) 16.1 % (3.0-13.0); NEUTROPHILS # (AUTO) 2.8 K/uL (1.8-7.7); PLATELET COUNT (AUTO) 63 K/uL (130-400); RED BLOOD CELL COUNT(AUTO) 2.91 MIL/uL (4.00-5.50); RED CELL DISTRIBUTION WIDTH 17.6 % (11.0-15.5)
[2023-01-21 04:55] LABS: BILIRUBIN,TOTAL 4.5 mg/dL (0.2-1.0); CREATININE 0.9 mg/dL (0.5-1.5); MAGNESIUM 1.3 mg/dL (1.80-2.40); POTASSIUM 3.1 mmol/L (3.5-5.1); TOTAL PROTEIN, SERUM 7.2 g/dL (6.0-8.3)
[2023-01-21] MEDS: OLANZAPINE ODT 5 MG TAB SL SCH ×3 (05:24→21:41)
[2023-01-21] MEDS: KCL 20 MEQ ERTAB PO PRN (05:24)
[2023-01-21] MEDS: LACTULOSE 20 GM/30 ML UDCUP PO SCH ×3 (05:25→21:41)
[2023-01-21] MEDS: MAGNESIUM 2GM PREMIX 50ML 50 ML IV PRN ×2 (05:28→09:19)
[2023-01-21 08:00] VITALS: BP 120/69; PULSE 86; RESP 18; O2SAT 90
[2023-01-21] MEDS: MULTIVITAMIN TABLET PO SCH (09:00)
[2023-01-21] MEDS: PANTOPRAZOLE 40 MG TAB DR PO SCH (09:00)
[2023-01-21] MEDS: THIAMINE HCL 100 MG TABLET PO SCH (09:00)
[2023-01-21] MEDS: POTASSIUM CHLORIDE 20MEQ/100ML 100 ML IV PRN (09:18)
[2023-01-21] MEDS: DEXTROSE 5%-WATER 1,000 ML IV SCH (11:16)
[2023-01-21 12:00] VITALS: BP 138/79; PULSE 82; RESP 18
[2023-01-21] MEDS: POTASSIUM CHLORIDE 10% ELIXIR 20 MEQ/15 ML UDCUP PO PRN (13:16)
[2023-01-21] MEDS: CEFTRIAXONE 2GM VIAL IVPB SCH (17:41)
[2023-01-21 19:40] VITALS: O2SAT 98
[2023-01-21 20:00] VITALS: BP 113/77; PULSE 81; RESP 18
[2023-01-21] MEDS: PANTOPRAZOLE 40 MG/VIAL IVP SCH (21:41)
[2023-01-22] VITALS (8 sets, daily range): BP systolic 90–118; BP diastolic 66–80; PULSE 88–98; RESP 16–18; O2SAT 96–98
[2023-01-22] MEDS: DEXTROSE 5%-WATER 1,000 ML IV SCH (00:39)
[2023-01-22] MEDS: OLANZAPINE ODT 5 MG TAB SL SCH ×3 (05:09→20:27)
[2023-01-22] MEDS: LACTULOSE 20 GM/30 ML UDCUP PO SCH ×3 (05:09→20:28)
[2023-01-22 05:31] LABS: HEMATOCRIT 33.6 % (36-48); MEAN CORPUSCULAR HEMOGLOBIN 34.4 pg (27.0-33.0); MEAN CORPUSCULAR HGB CONC 32.7 g/dL (32.0-36.0); RED BLOOD CELL COUNT(AUTO) 3.2 MIL/uL (4.00-5.50); RED CELL DISTRIBUTION WIDTH 16.9 % (11.0-15.5); WHITE BLOOD COUNT (AUTO) 4.5 K/uL (4.8-10.8)
[2023-01-22 05:51] LABS: ALBUMIN 2.1 g/dL (3.5-5.0); BILIRUBIN,TOTAL 4.5 mg/dL (0.2-1.0); CREATININE 1.1 mg/dL (0.5-1.5); MAGNESIUM 1.6 mg/dL (1.80-2.40); PHOSPHORUS 4.4 mg/dL (2.5-4.9); POTASSIUM 3.2 mmol/L (3.5-5.1); TOTAL PROTEIN, SERUM 7.8 g/dL (6.0-8.3)
[2023-01-22] MEDS: POTASSIUM CHLORIDE 10% ELIXIR 20 MEQ/15 ML UDCUP PO PRN ×2 (06:14→06:39)
[2023-01-22] MEDS: MAGNESIUM 2GM PREMIX 50ML 50 ML IV PRN (06:15)
[2023-01-22] MEDS: PANTOPRAZOLE 40 MG/VIAL IVP SCH ×2 (09:57→20:23)
[2023-01-22] MEDS: MULTIVITAMIN TABLET PO SCH (10:00)
[2023-01-22] MEDS: THIAMINE HCL 100 MG/ML 2ML VIAL IVP SCH (10:00)
[2023-01-22] MEDS: CEFTRIAXONE 2GM VIAL IVPB SCH (17:50)
[2023-01-22 20:07] LABS: ALCOHOL, BLOOD < 3 mg/dL (0-10); AMMONIA 23 umol/L (11-32)
[2023-01-23] VITALS (9 sets, daily range): BP systolic 87–119; BP diastolic 54–77; PULSE 76–92; RESP 16–20; O2SAT 97–98
[2023-01-23 03:44] LABS: HEMATOCRIT 33.4 % (36-48); MEAN CORPUSCULAR HEMOGLOBIN 34.6 pg (27.0-33.0); MEAN CORPUSCULAR HGB CONC 33.2 g/dL (32.0-36.0); RED BLOOD CELL COUNT(AUTO) 3.21 MIL/uL (4.00-5.50); RED CELL DISTRIBUTION WIDTH 15.9 % (11.0-15.5); WHITE BLOOD COUNT (AUTO) 6.7 K/uL (4.8-10.8)
[2023-01-23 03:59] LABS: BILIRUBIN,TOTAL 4.6 mg/dL (0.2-1.0); CREATININE 1.5 mg/dL (0.5-1.5); MAGNESIUM 1.8 mg/dL (1.80-2.40); POTASSIUM 3.4 mmol/L (3.5-5.1); TOTAL PROTEIN, SERUM 7.7 g/dL (6.0-8.3)
[2023-01-23] MEDS: LACTULOSE 20 GM/30 ML UDCUP PO SCH ×3 (05:13→22:05)
[2023-01-23] MEDS: POTASSIUM CHLORIDE 10% ELIXIR 20 MEQ/15 ML UDCUP PO PRN ×2 (05:13→20:24)
[2023-01-23] MEDS: MAGNESIUM 2GM PREMIX 50ML 50 ML IV PRN (05:14)
[2023-01-23] MEDS: PANTOPRAZOLE 40 MG/VIAL IVP SCH ×2 (08:39→20:24)
[2023-01-23] MEDS: THIAMINE HCL 100 MG/ML 2ML VIAL IVP SCH (08:42)
[2023-01-23] MEDS: FLUOXETINE HCL 10 MG CAPSULE PO SCH (08:42)
[2023-01-23] MEDS: MULTIVITAMIN TABLET PO SCH (08:42)
[2023-01-23] MEDS: OLANZAPINE ODT 5 MG TAB SL SCH (08:43)
[2023-01-23] MEDS ORDERED: HYDR-4377 PO (15:33)
[2023-01-23] MEDS: CEFTRIAXONE 2GM VIAL IVPB SCH (17:53)
[2023-01-23] MEDS ORDERED: OLANZAPINE ODT 5 MG TAB SL SCH (21:00)
[2023-01-24 03:32] VITALS: BP 119/84; PULSE 82; RESP 20
[2023-01-24 04:05] LABS: BASOPHILS # (AUTO) 0.13 K/uL (0.00-0.20); BASOPHILS % (AUTO) 1.7 % (0.0-5.0); EOSINOPHILS # (AUTO) 0.19 K/uL (0.00-0.70); EOSINOPHILS % (AUTO) 2.4 % (0.0-8.0); IMMATURE GRANULOCYTE ABSOLUTE 0.05 K/uL (0-1); LYMPHOCYTES # (AUTO) 1.3 K/uL (1.0-4.8); LYMPHOCYTES % (AUTO) 15.9 % (21.0-51.0); MEAN CORPUSCULAR VOLUME 106.4 fL (79-99); MONOCYTES # (AUTO) 1.1 K/uL (0.1-1.0); MONOCYTES % (AUTO) 14.4 % (3.0-13.0); NEUTROPHILS # (AUTO) 5.1 K/uL (1.8-7.7); PLATELET COUNT (AUTO) 94 K/uL (130-400); RED BLOOD CELL COUNT(AUTO) 3.29 MIL/uL (4.00-5.50); RED CELL DISTRIBUTION WIDTH 15.5 % (11.0-15.5); WHITE BLOOD COUNT (AUTO) 7.8 K/uL (4.8-10.8)
[2023-01-24 04:14] LABS: CREATININE 1.6 mg/dL (0.5-1.5); MAGNESIUM 1.7 mg/dL (1.80-2.40); PHOSPHORUS 4.1 mg/dL (2.5-4.9); POTASSIUM 3.9 mmol/L (3.5-5.1)
[2023-01-24] MEDS: LACTULOSE 20 GM/30 ML UDCUP PO SCH ×3 (05:33→21:04)
[2023-01-24 07:51] VITALS: BP 119/63; PULSE 81; RESP 19
[2023-01-24 08:00] VITALS: O2SAT 98
[2023-01-24 11:44] VITALS: BP 122/79; PULSE 82; RESP 19
[2023-01-24] MEDS: FLUOXETINE HCL 10 MG CAPSULE PO SCH (11:45)
[2023-01-24] MEDS: MULTIVITAMIN TABLET PO SCH (11:45)
[2023-01-24] MEDS: PANTOPRAZOLE 40 MG/VIAL IVP SCH ×2 (11:45→21:04)
[2023-01-24] MEDS: THIAMINE HCL 100 MG/ML 2ML VIAL IVP SCH (11:45)
[2023-01-24] MEDS: MAGNESIUM 2GM PREMIX 50ML 50 ML IV PRN (11:46)
[2023-01-24 16:20] VITALS: BP 116/76; PULSE 82; RESP 19
[2023-01-24] MEDS: CEFTRIAXONE 2GM VIAL IVPB SCH (17:49)
[2023-01-24 20:00] VITALS: BP 122/72; PULSE 86; RESP 18; O2SAT 98
[2023-01-25] VITALS (9 sets, daily range): BP systolic 110–128; BP diastolic 73–86; PULSE 64–89; RESP 18–20; O2SAT 97–100
[2023-01-25] MEDS: LACTULOSE 20 GM/30 ML UDCUP PO SCH ×3 (04:14→22:09)
[2023-01-25 04:44] LABS: CREATININE 1.3 mg/dL (0.5-1.5); POTASSIUM 4.4 mmol/L (3.5-5.1)
[2023-01-25 05:11] LABS: BASOPHILS # (AUTO) 0.14 K/uL (0.00-0.20); BASOPHILS % (AUTO) 1.5 % (0.0-5.0); EOSINOPHILS # (AUTO) 0.16 K/uL (0.00-0.70); EOSINOPHILS % (AUTO) 1.7 % (0.0-8.0); HEMATOCRIT 33.7 % (36-48); IMMATURE GRANULOCYTE ABSOLUTE 0.07 K/uL (0-1); LYMPHOCYTES # (AUTO) 1.5 K/uL (1.0-4.8); LYMPHOCYTES % (AUTO) 15.2 % (21.0-51.0); MEAN CORPUSCULAR HEMOGLOBIN 34.3 pg (27.0-33.0); MEAN CORPUSCULAR HGB CONC 33.2 g/dL (32.0-36.0); MEAN CORPUSCULAR VOLUME 103.1 fL (79-99); MONOCYTES # (AUTO) 1.2 K/uL (0.1-1.0); MONOCYTES % (AUTO) 12.8 % (3.0-13.0); NEUTROPHILS # (AUTO) 6.5 K/uL (1.8-7.7); NEUTROPHILS % (AUTO) 68.1 % (40.0-77.0); PLATELET COUNT (AUTO) 120 K/uL (130-400); RED BLOOD CELL COUNT(AUTO) 3.27 MIL/uL (4.00-5.50); RED CELL DISTRIBUTION WIDTH 14.8 % (11.0-15.5); WHITE BLOOD COUNT (AUTO) 9.5 K/uL (4.8-10.8)
[2023-01-25] MEDS: FLUOXETINE HCL 10 MG CAPSULE PO SCH (09:00)
[2023-01-25] MEDS ORDERED: 1/2 NS 1000ML 1,000 ML IV SCH (13:00)
[2023-01-25] MEDS: MULTIVITAMIN TABLET PO SCH (14:55)
[2023-01-25] MEDS: THIAMINE HCL 100 MG/ML 2ML VIAL IVP SCH (14:55)
[2023-01-25] MEDS: PANTOPRAZOLE 40 MG/VIAL IVP SCH ×2 (14:55→20:30)
[2023-01-25] MEDS ORDERED: M.V.I. IV [ADULT] 10 ML, MULTITRACE-4 ADULT 10ML VIAL 3 ML in CLINIMIX-E4.25%AA/D5+LYT2... IV ONE (16:30)
[2023-01-25] MEDS: CEFTRIAXONE 2GM VIAL IVPB SCH (17:52)
[2023-01-26 03:47] LABS: BASOPHILS # (AUTO) 0.13 K/uL (0.00-0.20); BASOPHILS % (AUTO) 1.6 % (0.0-5.0); EOSINOPHILS # (AUTO) 0.14 K/uL (0.00-0.70); EOSINOPHILS % (AUTO) 1.7 % (0.0-8.0); HEMATOCRIT 34.7 % (36-48); IMMATURE GRANULOCYTE ABSOLUTE 0.09 K/uL (0-1); LYMPHOCYTES # (AUTO) 1.3 K/uL (1.0-4.8); LYMPHOCYTES % (AUTO) 16.6 % (21.0-51.0); MEAN CORPUSCULAR HEMOGLOBIN 34.3 pg (27.0-33.0); MEAN CORPUSCULAR HGB CONC 32.6 g/dL (32.0-36.0); MEAN CORPUSCULAR VOLUME 105.5 fL (79-99); MONOCYTES % (AUTO) 12.9 % (3.0-13.0); NEUTROPHILS # (AUTO) 5.3 K/uL (1.8-7.7); NEUTROPHILS % (AUTO) 66.1 % (40.0-77.0); PLATELET COUNT (AUTO) 120 K/uL (130-400); RED BLOOD CELL COUNT(AUTO) 3.29 MIL/uL (4.00-5.50); RED CELL DISTRIBUTION WIDTH 15.1 % (11.0-15.5); WHITE BLOOD COUNT (AUTO) 8.1 K/uL (4.8-10.8)
[2023-01-26 04:03] VITALS: BP 114/79; PULSE 85; RESP 20
[2023-01-26 04:12] LABS: ALBUMIN 2.1 g/dL (3.5-5.0); CREATININE 1.3 mg/dL (0.5-1.5); MAGNESIUM 1.7 mg/dL (1.80-2.40); POTASSIUM 3.6 mmol/L (3.5-5.1); TOTAL PROTEIN, SERUM 7.9 g/dL (6.0-8.3)
[2023-01-26] MEDS: LACTULOSE 20 GM/30 ML UDCUP PO SCH ×3 (05:10→21:08)
[2023-01-26 08:00] VITALS: BP 112/70; PULSE 72; RESP 16; O2SAT 97
[2023-01-26] MEDS: FLUOXETINE HCL 10 MG CAPSULE PO SCH (09:00)
[2023-01-26] MEDS: MULTIVITAMIN TABLET PO SCH (09:22)
[2023-01-26] MEDS: PANTOPRAZOLE 40 MG/VIAL IVP SCH ×2 (09:22→20:22)
[2023-01-26] MEDS: THIAMINE HCL 100 MG/ML 2ML VIAL IVP SCH (09:22)
[2023-01-26 12:00] VITALS: BP 124/62; PULSE 82; RESP 17
[2023-01-26] MEDS ORDERED: MULTITRACE-4 ADULT 10ML VIAL 3 ML, M.V.I. IV [ADULT] 10 ML in CLINIMIX-E4.25%AA/D5+LYT2... IV ONE (12:00)
[2023-01-26 16:00] VITALS: BP 111/66; PULSE 98; RESP 16
[2023-01-26] MEDS: POTASSIUM CHLORIDE 10% ELIXIR 20 MEQ/15 ML UDCUP PO PRN (17:39)
[2023-01-26] MEDS: CEFTRIAXONE 2GM VIAL IVPB SCH (17:39)
[2023-01-26 20:00] VITALS: BP 106/53; PULSE 69; RESP 18; O2SAT 95
[2023-01-26 23:17] VITALS: BP 120/73; PULSE 69; RESP 18
[2023-01-27 04:00] VITALS: BP 110/67; PULSE 86; RESP 18
[2023-01-27 04:11] LABS: BASOPHILS # (AUTO) 0.15 K/uL (0.00-0.20); BASOPHILS % (AUTO) 1.9 % (0.0-5.0); EOSINOPHILS # (AUTO) 0.15 K/uL (0.00-0.70); EOSINOPHILS % (AUTO) 1.9 % (0.0-8.0); HEMATOCRIT 34.4 % (36-48); IMMATURE GRANULOCYTE ABSOLUTE 0.11 K/uL (0-1); LYMPHOCYTES # (AUTO) 1.5 K/uL (1.0-4.8); LYMPHOCYTES % (AUTO) 19.8 % (21.0-51.0); MEAN CORPUSCULAR HEMOGLOBIN 34.3 pg (27.0-33.0); MEAN CORPUSCULAR VOLUME 107.2 fL (79-99); MONOCYTES # (AUTO) 0.9 K/uL (0.1-1.0); MONOCYTES % (AUTO) 12.1 % (3.0-13.0); NEUTROPHILS # (AUTO) 4.9 K/uL (1.8-7.7); NEUTROPHILS % (AUTO) 62.9 % (40.0-77.0); PLATELET COUNT (AUTO) 120 K/uL (130-400); RED BLOOD CELL COUNT(AUTO) 3.21 MIL/uL (4.00-5.50); RED CELL DISTRIBUTION WIDTH 14.9 % (11.0-15.5); WHITE BLOOD COUNT (AUTO) 7.8 K/uL (4.8-10.8)
[2023-01-27 04:22] LABS: POTASSIUM 4.1 mmol/L (3.5-5.1)
[2023-01-27] MEDS: LACTULOSE 20 GM/30 ML UDCUP PO SCH ×3 (05:20→21:10)
[2023-01-27 08:00] VITALS: BP 126/97; PULSE 82; RESP 18
[2023-01-27] MEDS: FLUOXETINE HCL 10 MG CAPSULE PO SCH ×2 (09:00→09:49)
[2023-01-27] MEDS: MULTIVITAMIN TABLET PO SCH ×2 (09:00→09:49)
[2023-01-27] MEDS: PANTOPRAZOLE 40 MG/VIAL IVP SCH ×2 (09:40→21:10)
[2023-01-27] MEDS: THIAMINE HCL 100 MG/ML 2ML VIAL IVP SCH (09:40)
[2023-01-27 12:00] VITALS: BP 138/89; PULSE 83; RESP 18
[2023-01-27 16:00] VITALS: BP 135/72; PULSE 76; RESP 20
[2023-01-27] MEDS: CEFTRIAXONE 2GM VIAL IVPB SCH (18:33)
[2023-01-27 20:00] VITALS: BP 114/72; PULSE 88; RESP 19; O2SAT 95
[2023-01-28 04:00] VITALS: BP 104/66; PULSE 80; RESP 18
[2023-01-28 05:16] LABS: BASOPHILS # (AUTO) 0.15 K/uL (0.00-0.20); BASOPHILS % (AUTO) 1.9 % (0.0-5.0); EOSINOPHILS # (AUTO) 0.18 K/uL (0.00-0.70); EOSINOPHILS % (AUTO) 2.3 % (0.0-8.0); HEMATOCRIT 31.8 % (36-48); IMMATURE GRANULOCYTE ABSOLUTE 0.07 K/uL (0-1); LYMPHOCYTES # (AUTO) 1.4 K/uL (1.0-4.8); LYMPHOCYTES % (AUTO) 18.2 % (21.0-51.0); MEAN CORPUSCULAR HEMOGLOBIN 34.2 pg (27.0-33.0); MEAN CORPUSCULAR HGB CONC 31.8 g/dL (32.0-36.0); MEAN CORPUSCULAR VOLUME 107.8 fL (79-99); MONOCYTES # (AUTO) 0.9 K/uL (0.1-1.0); MONOCYTES % (AUTO) 11.7 % (3.0-13.0); PLATELET COUNT (AUTO) 114 K/uL (130-400); RED BLOOD CELL COUNT(AUTO) 2.95 MIL/uL (4.00-5.50); RED CELL DISTRIBUTION WIDTH 15.1 % (11.0-15.5); WHITE BLOOD COUNT (AUTO) 7.8 K/uL (4.8-10.8)
[2023-01-28] MEDS: LACTULOSE 20 GM/30 ML UDCUP PO SCH ×3 (05:21→21:21)
[2023-01-28 05:44] LABS: ALBUMIN 1.9 g/dL (3.5-5.0); BILIRUBIN,TOTAL 2.2 mg/dL (0.2-1.0); CREATININE 1.2 mg/dL (0.5-1.5); MAGNESIUM 1.3 mg/dL (1.80-2.40); PHOSPHORUS 3.5 mg/dL (2.5-4.9); POTASSIUM 3.2 mmol/L (3.5-5.1); TOTAL PROTEIN, SERUM 7.3 g/dL (6.0-8.3)
[2023-01-28] MEDS: MAGNESIUM 2GM PREMIX 50ML 50 ML IV PRN (06:23)
[2023-01-28] MEDS: POTASSIUM CHLORIDE 10% ELIXIR 20 MEQ/15 ML UDCUP PO PRN (06:24)
[2023-01-28 06:58] VITALS: O2SAT 95
[2023-01-28] MEDS: KCL 20 MEQ ERTAB PO PRN (07:23)
[2023-01-28] MEDS: FLUOXETINE HCL 10 MG CAPSULE PO SCH (07:24)
[2023-01-28] MEDS: THIAMINE HCL 100 MG/ML 2ML VIAL IVP SCH (07:24)
[2023-01-28] MEDS: MULTIVITAMIN TABLET PO SCH (07:24)
[2023-01-28] MEDS: PANTOPRAZOLE 40 MG/VIAL IVP SCH ×2 (07:24→21:21)
[2023-01-28 08:00] VITALS: BP 106/66; PULSE 82; RESP 18
[2023-01-28 12:04] VITALS: BP 107/61; PULSE 69; RESP 18
[2023-01-28 16:00] VITALS: BP 106/62; PULSE 71; RESP 18
[2023-01-28] MEDS: CEFTRIAXONE 2GM VIAL IVPB SCH (18:25)
[2023-01-28 20:00] VITALS: BP 102/57; PULSE 64; RESP 20; O2SAT 95
[2023-01-29] VITALS: BP 114/79; PULSE 68; RESP 18
[2023-01-29 03:14] LABS: BASOPHILS # (AUTO) 0.11 K/uL (0.00-0.20); BASOPHILS % (AUTO) 1.6 % (0.0-5.0); EOSINOPHILS # (AUTO) 0.14 K/uL (0.00-0.70); EOSINOPHILS % (AUTO) 2.1 % (0.0-8.0); HEMATOCRIT 32.1 % (36-48); IMMATURE GRANULOCYTE ABSOLUTE 0.06 K/uL (0-1); LYMPHOCYTES # (AUTO) 1.4 K/uL (1.0-4.8); LYMPHOCYTES % (AUTO) 20.8 % (21.0-51.0); MEAN CORPUSCULAR HEMOGLOBIN 34.2 pg (27.0-33.0); MEAN CORPUSCULAR HGB CONC 32.7 g/dL (32.0-36.0); MEAN CORPUSCULAR VOLUME 104.6 fL (79-99); MONOCYTES # (AUTO) 0.7 K/uL (0.1-1.0); MONOCYTES % (AUTO) 9.9 % (3.0-13.0); NEUTROPHILS # (AUTO) 4.3 K/uL (1.8-7.7); NEUTROPHILS % (AUTO) 64.7 % (40.0-77.0); PLATELET COUNT (AUTO) 114 K/uL (130-400); RED BLOOD CELL COUNT(AUTO) 3.07 MIL/uL (4.00-5.50); RED CELL DISTRIBUTION WIDTH 15.1 % (11.0-15.5); WHITE BLOOD COUNT (AUTO) 6.7 K/uL (4.8-10.8)
[2023-01-29 03:27] LABS: ALBUMIN 1.9 g/dL (3.5-5.0); BILIRUBIN,TOTAL 2.5 mg/dL (0.2-1.0); POTASSIUM 3.6 mmol/L (3.5-5.1); TOTAL PROTEIN, SERUM 7.1 g/dL (6.0-8.3)
[2023-01-29 04:00] VITALS: BP 105/54; PULSE 69; RESP 20
[2023-01-29] MEDS: LACTULOSE 20 GM/30 ML UDCUP PO SCH ×3 (05:55→20:54)
[2023-01-29 08:00] VITALS: BP 102/51; PULSE 69; RESP 16; O2SAT 96
[2023-01-29] MEDS: THIAMINE HCL 100 MG/ML 2ML VIAL IVP SCH (09:05)
[2023-01-29] MEDS: MULTIVITAMIN TABLET PO SCH (09:05)
[2023-01-29] MEDS: FLUOXETINE HCL 10 MG CAPSULE PO SCH (09:05)
[2023-01-29] MEDS: PANTOPRAZOLE 40 MG/VIAL IVP SCH ×2 (09:06→20:54)
[2023-01-29 12:00] VITALS: BP 114/59; PULSE 66; RESP 16
[2023-01-29 16:00] VITALS: BP_SYST 109; BP_SYST 145; BP_DIAS 61; BP_DIAS 63; PULSE 69; PULSE 84; RESP 16
[2023-01-29] MEDS: CEFTRIAXONE 2GM VIAL IVPB SCH (17:12)
[2023-01-29 20:00] VITALS: BP 153/66; PULSE 77; RESP 20; O2SAT 96
[2023-01-30] VITALS (7 sets, daily range): BP systolic 106–117; BP diastolic 63–78; PULSE 68–82; RESP 17–20; O2SAT 97
[2023-01-30 04:34] LABS: BASOPHILS % (AUTO) 1.5 % (0.0-5.0); EOSINOPHILS # (AUTO) 0.13 K/uL (0.00-0.70); IMMATURE GRANULOCYTE ABSOLUTE 0.04 K/uL (0-1); LYMPHOCYTES # (AUTO) 1.4 K/uL (1.0-4.8); LYMPHOCYTES % (AUTO) 20.6 % (21.0-51.0); MEAN CORPUSCULAR HEMOGLOBIN 34.4 pg (27.0-33.0); MEAN CORPUSCULAR HGB CONC 32.6 g/dL (32.0-36.0); MEAN CORPUSCULAR VOLUME 105.4 fL (79-99); MONOCYTES # (AUTO) 0.7 K/uL (0.1-1.0); MONOCYTES % (AUTO) 10.7 % (3.0-13.0); NEUTROPHILS # (AUTO) 4.3 K/uL (1.8-7.7); NEUTROPHILS % (AUTO) 64.6 % (40.0-77.0); PLATELET COUNT (AUTO) 125 K/uL (130-400); RED BLOOD CELL COUNT(AUTO) 2.94 MIL/uL (4.00-5.50); RED CELL DISTRIBUTION WIDTH 15.2 % (11.0-15.5); WHITE BLOOD COUNT (AUTO) 6.7 K/uL (4.8-10.8)
[2023-01-30 04:40] LABS: ALBUMIN 1.9 g/dL (3.5-5.0); BILIRUBIN,TOTAL 2.3 mg/dL (0.2-1.0); CREATININE 0.9 mg/dL (0.5-1.5); POTASSIUM 3.9 mmol/L (3.5-5.1); TOTAL PROTEIN, SERUM 7.1 g/dL (6.0-8.3)
[2023-01-30] MEDS: LACTULOSE 20 GM/30 ML UDCUP PO SCH ×3 (05:44→20:29)
[2023-01-30] MEDS: THIAMINE HCL 100 MG/ML 2ML VIAL IVP SCH (08:52)
[2023-01-30] MEDS: MULTIVITAMIN TABLET PO SCH (08:52)
[2023-01-30] MEDS: PANTOPRAZOLE 40 MG/VIAL IVP SCH ×2 (08:52→20:29)
[2023-01-30] MEDS: FLUOXETINE HCL 10 MG CAPSULE PO SCH (08:52)
[2023-01-30] MEDS: CEFTRIAXONE 2GM VIAL IVPB SCH (17:35)
[2023-01-31] VITALS (9 sets, daily range): BP systolic 97–110; BP diastolic 54–69; PULSE 64–79; RESP 16–20; O2SAT 97–99
[2023-01-31 05:37] LABS: BASOPHILS % (AUTO) 1.6 % (0.0-5.0); EOSINOPHILS # (AUTO) 0.15 K/uL (0.00-0.70); EOSINOPHILS % (AUTO) 2.4 % (0.0-8.0); HEMATOCRIT 27.6 % (36-48); IMMATURE GRANULOCYTE ABSOLUTE 0.03 K/uL (0-1); LYMPHOCYTES # (AUTO) 1.4 K/uL (1.0-4.8); LYMPHOCYTES % (AUTO) 21.5 % (21.0-51.0); MONOCYTES # (AUTO) 0.6 K/uL (0.1-1.0); NEUTROPHILS # (AUTO) 4.1 K/uL (1.8-7.7); PLATELET COUNT (AUTO) 102 K/uL (130-400); RED BLOOD CELL COUNT(AUTO) 2.68 MIL/uL (4.00-5.50); RED CELL DISTRIBUTION WIDTH 15.2 % (11.0-15.5); WHITE BLOOD COUNT (AUTO) 6.4 K/uL (4.8-10.8)
[2023-01-31 05:53] LABS: ALBUMIN 1.7 g/dL (3.5-5.0); BILIRUBIN,TOTAL 1.9 mg/dL (0.2-1.0); CREATININE 0.9 mg/dL (0.5-1.5); MAGNESIUM 1.2 mg/dL (1.80-2.40); PHOSPHORUS 3.5 mg/dL (2.5-4.9); POTASSIUM 3.2 mmol/L (3.5-5.1); TOTAL PROTEIN, SERUM 6.3 g/dL (6.0-8.3)
[2023-01-31] MEDS: LACTULOSE 20 GM/30 ML UDCUP PO SCH ×3 (06:06→22:00)
[2023-01-31] MEDS: MAGNESIUM 2GM PREMIX 50ML 50 ML IV PRN (08:20)
[2023-01-31] MEDS: THIAMINE HCL 100 MG/ML 2ML VIAL IVP SCH (08:20)
[2023-01-31] MEDS: MULTIVITAMIN TABLET PO SCH (08:20)
[2023-01-31] MEDS: PANTOPRAZOLE 40 MG/VIAL IVP SCH ×2 (08:20→21:00)
[2023-01-31] MEDS: FLUOXETINE HCL 10 MG CAPSULE PO SCH (08:20)
[2023-01-31] MEDS: POTASSIUM CHLORIDE 10% ELIXIR 20 MEQ/15 ML UDCUP PO PRN ×3 (08:21→18:12)
[2023-02-01] VITALS (7 sets, daily range): BP systolic 101–114; BP diastolic 62–70; PULSE 60–86; RESP 14–18; O2SAT 98
[2023-02-01 04:42] LABS: BASOPHILS % (AUTO) 1.4 % (0.0-5.0); EOSINOPHILS # (AUTO) 0.16 K/uL (0.00-0.70); EOSINOPHILS % (AUTO) 2.2 % (0.0-8.0); HEMATOCRIT 29.6 % (36-48); IMMATURE GRANULOCYTE ABSOLUTE 0.04 K/uL (0-1); LYMPHOCYTES # (AUTO) 1.7 K/uL (1.0-4.8); LYMPHOCYTES % (AUTO) 22.6 % (21.0-51.0); MEAN CORPUSCULAR HEMOGLOBIN 33.8 pg (27.0-33.0); MEAN CORPUSCULAR HGB CONC 32.4 g/dL (32.0-36.0); MEAN CORPUSCULAR VOLUME 104.2 fL (79-99); MONOCYTES # (AUTO) 0.6 K/uL (0.1-1.0); MONOCYTES % (AUTO) 8.7 % (3.0-13.0); NEUTROPHILS # (AUTO) 4.8 K/uL (1.8-7.7); NEUTROPHILS % (AUTO) 64.6 % (40.0-77.0); PLATELET COUNT (AUTO) 103 K/uL (130-400); RED BLOOD CELL COUNT(AUTO) 2.84 MIL/uL (4.00-5.50); WHITE BLOOD COUNT (AUTO) 7.4 K/uL (4.8-10.8)
[2023-02-01 04:49] LABS: CREATININE 0.9 mg/dL (0.5-1.5); MAGNESIUM 1.3 mg/dL (1.80-2.40); POTASSIUM 4.3 mmol/L (3.5-5.1)
[2023-02-01] MEDS: LACTULOSE 20 GM/30 ML UDCUP PO SCH ×3 (06:07→21:09)
[2023-02-01] MEDS: MULTIVITAMIN TABLET PO SCH (08:52)
[2023-02-01] MEDS: THIAMINE HCL 100 MG/ML 2ML VIAL IVP SCH (08:52)
[2023-02-01] MEDS: FLUOXETINE HCL 10 MG CAPSULE PO SCH (08:52)
[2023-02-01] MEDS: PANTOPRAZOLE 40 MG/VIAL IVP SCH ×2 (08:53→21:09)
[2023-02-01] MEDS: MAGNESIUM OXIDE 400 MG TABLET PO SCH (21:09)
[2023-02-02 04:00] VITALS: BP 107/74; PULSE 84; RESP 18
[2023-02-02 08:00] VITALS: BP 135/58; PULSE 82; RESP 14
[2023-02-02] MEDS: MAGNESIUM OXIDE 400 MG TABLET PO SCH (09:00)
[2023-02-02] MEDS: PANTOPRAZOLE 40 MG/VIAL IVP SCH (09:00)
[2023-02-02] MEDS: FLUOXETINE HCL 10 MG CAPSULE PO SCH (09:00)
[2023-02-02] MEDS: THIAMINE HCL 100 MG/ML 2ML VIAL IVP SCH (09:00)
[2023-02-02] MEDS: MULTIVITAMIN TABLET PO SCH (09:00)
[2023-02-02 12:00] VITALS: BP 112/70; PULSE 77; RESP 14
[2023-02-02 14:49] LABS: BASOPHILS # (AUTO) 0.08 K/uL (0.00-0.20); BASOPHILS % (AUTO) 1.2 % (0.0-5.0); EOSINOPHILS # (AUTO) 0.14 K/uL (0.00-0.70); EOSINOPHILS % (AUTO) 2.1 % (0.0-8.0); HEMATOCRIT 26.8 % (36-48); IMMATURE GRANULOCYTE ABSOLUTE 0.04 K/uL (0-1); LYMPHOCYTES # (AUTO) 1.2 K/uL (1.0-4.8); LYMPHOCYTES % (AUTO) 18.3 % (21.0-51.0); MEAN CORPUSCULAR HGB CONC 33.6 g/dL (32.0-36.0); MEAN CORPUSCULAR VOLUME 101.1 fL (79-99); MONOCYTES # (AUTO) 0.5 K/uL (0.1-1.0); MONOCYTES % (AUTO) 7.7 % (3.0-13.0); NEUTROPHILS # (AUTO) 4.8 K/uL (1.8-7.7); NEUTROPHILS % (AUTO) 70.1 % (40.0-77.0); PLATELET COUNT (AUTO) 88 K/uL (130-400); RED BLOOD CELL COUNT(AUTO) 2.65 MIL/uL (4.00-5.50); RED CELL DISTRIBUTION WIDTH 14.8 % (11.0-15.5); WHITE BLOOD COUNT (AUTO) 6.8 K/uL (4.8-10.8)
[2023-02-02] MEDS ORDERED: LACT10SO9 PO (14:52)
[2023-02-02] MEDS: LACTULOSE 20 GM/30 ML UDCUP PO SCH (15:08)
[2023-02-02 16:00] VITALS: BP 112/67; PULSE 69; RESP 14
[2023-02-02 21:42] LABS: ALBUMIN 1.7 g/dL (3.5-5.0); BILIRUBIN,TOTAL 1.9 mg/dL (0.2-1.0); CREATININE 0.9 mg/dL (0.5-1.5); MAGNESIUM 1.1 mg/dL (1.80-2.40); POTASSIUM 3.3 mmol/L (3.5-5.1); TOTAL PROTEIN, SERUM 6.3 g/dL (6.0-8.3)
== END 2023-02-02 18:20 | disposition home or self-care (01) | DRG 377 ==
LOC: EDH 17:00 → EDHIP 17:01 → 4CH 22:46 → 2DH 01-17 19:40 → 4AH 01-18 15:43
PROVIDERS: ADMIT Hospitalist; ATTEND Hospitalist
PROC: 30233R1 Transfusion of Nonautologous Platelets into Peripheral Vein, Percutaneous Approach (ICD-10-PCS; principal; 2023-01-15)
PROC: 0DJ08ZZ Inspection of Upper Intestinal Tract, Via Natural or Artificial Opening Endoscopic (ICD-10-PCS; 2023-01-16)
DX: K29.71 Gastritis, unspecified, with bleeding (principal); E43 Unspecified severe protein-calorie malnutrition; G93.41 Metabolic encephalopathy; D68.9 Coagulation defect, unspecified; E87.0 Hyperosmolality and hypernatremia; Z20.822 Contact with and (suspected) exposure to COVID-19; K76.6 Portal hypertension; N17.9 Acute kidney failure, unspecified; D69.6 Thrombocytopenia, unspecified; K76.82 Hepatic encephalopathy; F10.229 Alcohol dependence with intoxication, unspecified; I12.9 Hypertensive chronic kidney disease with stage 1 through stage 4 chronic kidney disease, or unspecified chronic kidney disease; K31.89 Other diseases of stomach and duodenum; F17.210 Nicotine dependence, cigarettes, uncomplicated; D64.9 Anemia, unspecified; F32.A Depression, unspecified; F41.9 Anxiety disorder, unspecified; N18.9 Chronic kidney disease, unspecified; Z82.49 Family history of ischemic heart disease and other diseases of the circulatory system; K74.60 Unspecified cirrhosis of liver; Z68.27 Body mass index [BMI] 27.0-27.9, adult
CPT/HCPCS: 36415; 36430; 36600; 43235; 70450; 71045; 74018; 74177; 74230; 80048; 80053; 81001; 82140; 82150; 82270; 82435; 82436; 82550; 82570; 82803; 82947; 82948; 83540; 83550; 83605; 83690; 83735; 84100; 84132; 84133; 84295; 84300; 85014; 85018; 85025; 85027; 85610; 85730; 86850; 86900; 86901; 87635; 87804; 92526; 92610; 92611; 93005; 97039; A4606; C9113; G0378; G0481; J0610; J0696; J2060; J2250; J2354; J2405; J2704; J3411; J3430; J3475; J3480; J3490; J7030; J7050; J7070; P9034; Q9967; A4215; A4216; A4222; A4223; A4620; A4657; A7002

== ENCOUNTER 2023-07-17 21:13 | Emergency (ER) | payer BC, OTHER ==
[~2023-07-17] VITALS: Ht 157.5 cm; Wt 78.0 kg
[~2023-07-17 21:13] MED LIST changes: +FLUO20CA30 PO; +HYDR-3421 PO; -IBUP-2070 PO; +LACT10SO9 PO
[2023-07-17] MEDS: LEVETIRACETAM 500 MG/5 ML SD VIAL IV SCH (22:21)
[2023-07-17 22:22] LABS: BASOPHILS # (AUTO) 0.02 K/uL (0.00-0.20); BASOPHILS % (AUTO) 0.3 % (0.0-5.0); EOSINOPHILS # (AUTO) 0.01 K/uL (0.00-0.70); EOSINOPHILS % (AUTO) 0.2 % (0.0-8.0); HEMATOCRIT 27.2 % (36-48); IMMATURE GRANULOCYTE ABSOLUTE 0.02 K/uL (0-1); LYMPHOCYTES # (AUTO) 0.7 K/uL (1.0-4.8); LYMPHOCYTES % (AUTO) 11.3 % (21.0-51.0); MEAN CORPUSCULAR HEMOGLOBIN 26.4 pg (27.0-33.0); MEAN CORPUSCULAR HGB CONC 34.9 g/dL (32.0-36.0); MEAN CORPUSCULAR VOLUME 75.6 fL (79-99); MONOCYTES # (AUTO) 0.3 K/uL (0.1-1.0); MONOCYTES % (AUTO) 5.2 % (3.0-13.0); NEUTROPHILS # (AUTO) 4.8 K/uL (1.8-7.7); NEUTROPHILS % (AUTO) 82.7 % (40.0-77.0); PLATELET COUNT (AUTO) 45 K/uL (130-400); RED CELL DISTRIBUTION WIDTH 17.7 % (11.0-15.5); WHITE BLOOD COUNT (AUTO) 5.8 K/uL (4.8-10.8)
[2023-07-17 22:34] LABS: ALBUMIN 2.6 g/dL (3.5-5.0); BILIRUBIN,TOTAL 4.2 mg/dL (0.2-1.0); CREATININE 1.1 mg/dL (0.5-1.0); TOTAL PROTEIN, SERUM 7.5 g/dL (6.0-8.3)
[2023-07-17 22:36] LABS: POTASSIUM 2.9 mmol/L (3.5-5.1)
[2023-07-17] MEDS ORDERED: PHARMACY COMMUNICATION MISC PRN (23:00)
[2023-07-17] MEDS ORDERED: LORAZEPAM 2 MG/ML 1 ML VIAL IVP PRN (23:00)
[2023-07-17] MEDS: CALCIUM GLUC 1GM/10ML VIAL IV STA (23:08)
[2023-07-17] MEDS: 0.9%NACL 1000ML 1,000 ML IV ONE (23:08)
[2023-07-17] MEDS: POTASSIUM BICARB/CIT AC 25 MEQ TABLET.EFF PO ONE (23:08)
[2023-07-17] MEDS: MAGNESIUM 2GM PREMIX 50ML 50 ML IV SCH (23:43)
[2023-07-18 01:19] LABS: HEMATOCRIT 25.5 % (36-48); MEAN CORPUSCULAR HEMOGLOBIN 26.9 pg (27.0-33.0); MEAN CORPUSCULAR HGB CONC 35.3 g/dL (32.0-36.0); MEAN CORPUSCULAR VOLUME 76.1 fL (79-99); RED BLOOD CELL COUNT(AUTO) 3.35 MIL/uL (4.00-5.50); RED CELL DISTRIBUTION WIDTH 17.7 % (11.0-15.5); WHITE BLOOD COUNT (AUTO) 7.3 K/uL (4.8-10.8)
[2023-07-18 01:38] LABS: MAGNESIUM 1.8 mg/dL (1.80-2.40); POTASSIUM 3.4 mmol/L (3.5-5.1); THYROID STIMULATING HORMONE 2.34 uIU/mL (0.36-3.74)
[2023-07-18 02:32] VITALS: BP 121/64; PULSE 76; RESP 16; O2SAT 99
[2023-07-18] MEDS: CHLORDIAZEPOXIDE HCL 25 MG CAP PO PRN (02:32)
[2023-07-18] MEDS: LACTATED RINGERS 1000ML IV SCH (02:33)
== END 2023-07-18 02:39 | disposition short-term general hospital (02) ==
LOC: EDH 21:13
DX: R56.9 Unspecified convulsions (principal); F10.10 Alcohol abuse, uncomplicated; E87.1 Hypo-osmolality and hyponatremia; E87.6 Hypokalemia; E83.42 Hypomagnesemia; E83.51 Hypocalcemia; F41.9 Anxiety disorder, unspecified; F32.A Depression, unspecified; Z79.899 Other long term (current) drug therapy
CPT/HCPCS: 99284; 84443; 83735 ×2; 80048; 80053; 84703; 85025; 85027; 36415 ×2; 70450; 96365; 96375; 96367; J3475; J1953; J0610; J7120; J0612

== ENCOUNTER 2023-10-03 01:39 | Emergency (ER) | payer BC ==
[~2023-10-03 01:39] MED LIST changes: +HYD25 PO; -HYDR-3421 PO; -LACT10SO9 PO; +MESA1S PR; +PANT40TA55 PO
[2023-10-03 02:21] LABS: BASOPHILS % (AUTO) 1.3 % (0.0-5.0); EOSINOPHILS # (AUTO) 0.15 K/uL (0.00-0.70); HEMATOCRIT 32.3 % (36-48); IMMATURE GRANULOCYTE ABSOLUTE 0.02 K/uL (0-1); LYMPHOCYTES # (AUTO) 2.2 K/uL (1.0-4.8); LYMPHOCYTES % (AUTO) 29.3 % (21.0-51.0); MEAN CORPUSCULAR HEMOGLOBIN 28.4 pg (27.0-33.0); MEAN CORPUSCULAR HGB CONC 34.7 g/dL (32.0-36.0); MONOCYTES # (AUTO) 0.6 K/uL (0.1-1.0); MONOCYTES % (AUTO) 7.7 % (3.0-13.0); NEUTROPHILS # (AUTO) 4.6 K/uL (1.8-7.7); NEUTROPHILS % (AUTO) 59.4 % (40.0-77.0); PLATELET COUNT (AUTO) 67 K/uL (130-400); RED BLOOD CELL COUNT(AUTO) 3.94 MIL/uL (4.00-5.50); WHITE BLOOD COUNT (AUTO) 7.7 K/uL (4.8-10.8)
[2023-10-03 02:23] LABS: APPEARANCE,URINE CLEAR (CLEAR); BILIRUBIN,URINE NEGATIVE (NEGATIVE); COLOR,URINE LIGHT-YELLOW (YELLOW); GLUCOSE, URINE (UA) NEGATIVE (NEGATIVE); KETONES,URINE NEGATIVE (NEGATIVE); LEUKOCYTE ESTERASE ,URINE 25 Leu/uL (NEGATIVE); NITRATE,URINE NEGATIVE (NEGATIVE); OCCULT BLOOD,URINE MODERATE (NEGATIVE); PH,URINE 5.5 (5.0-8.0); PROTEIN,URINE NEGATIVE (NEGATIVE); UROBILINOGEN,URINE 0.2 mg/dL (0.2-1.0)
[2023-10-03 02:24] LABS: ADD UA MICROSCOPIC YES
[2023-10-03 02:26] LABS: BACTERIA,URINE FEW /HPF (None Seen); MUCUS,URINE RARE LPF (None Seen); RBC,URINE 0-1 /HPF (0-1); SQUAMOUS EPITHELIAL CELL,UR FEW /HPF (0-2)
[2023-10-03 02:37] LABS: ALBUMIN 3.2 g/dL (3.5-5.0); BILIRUBIN,TOTAL 4.4 mg/dL (0.2-1.0); CREATININE 1.1 mg/dL (0.5-1.0); POTASSIUM 3.5 mmol/L (3.5-5.1); TOTAL PROTEIN, SERUM 8.3 g/dL (6.0-8.3)
[2023-10-03 04:09] LABS: AMPHET/METH SCREEN,URINE NEGATIVE (NEGATIVE); BARBITURATE SCREEN, URINE NEGATIVE (NEGATIVE); BENZODIAZEPINES SCREEN,URINE NEGATIVE (NEGATIVE); CANNABINOID SCREEN,URINE NEGATIVE (NEGATIVE); COCAINE SCREEN,URINE NEGATIVE (NEGATIVE); OPIATE SCREEN,URINE NEGATIVE (NEGATIVE); PHENCYCLIDINE SCREEN,URINE NEGATIVE (NEGATIVE)
[2023-10-03] MEDS ORDERED: NITR100C4 PO (06:51)
[2023-10-03 07:06] VITALS: BP 128/78; PULSE 80; RESP 16; O2SAT 100
== END 2023-10-03 07:08 | disposition home or self-care (01) ==
LOC: EDH 01:39
DX: N28.9 Disorder of kidney and ureter, unspecified (principal); F10.10 Alcohol abuse, uncomplicated; D69.6 Thrombocytopenia, unspecified; E11.9 Type 2 diabetes mellitus without complications; I10 Essential (primary) hypertension; Z79.899 Other long term (current) drug therapy
CPT/HCPCS: 36415; 74176; 80053; 80305; 81001; 81025; 85025

== ENCOUNTER 2024-01-15 20:44 | Emergency (ER) | payer BC ==
[~2024-01-15 20:44] MED LIST changes: +NITR100C4 PO
[2024-01-15 22:25] LABS: RAPID GROUP A STREP negative (NEGATIVE)
[2024-01-15 22:35] LABS: COVID19 (SARS ANTIGEN RAPID) PRESUMPTIVE NEGATIVE (NEGATIVE); INFLUENZA TYPE A Negative For Type A (NEGATIVE)
[2024-01-15] MEDS: ondanSETRON 4MG INJ IVP ONE (22:38)
[2024-01-15] MEDS: 0.9%NACL 1000ML 1,000 ML IV ONE (22:39)
[2024-01-15 22:41] LABS: BASOPHILS # (AUTO) 0.06 K/uL (0.00-0.20); EOSINOPHILS # (AUTO) 0.09 K/uL (0.00-0.70); EOSINOPHILS % (AUTO) 2.9 % (0.0-8.0); HEMATOCRIT 32.8 % (36-48); IMMATURE GRANULOCYTE ABSOLUTE 0.01 K/uL (0-1); LYMPHOCYTES # (AUTO) 1.4 K/uL (1.0-4.8); LYMPHOCYTES % (AUTO) 45.9 % (21.0-51.0); MEAN CORPUSCULAR HEMOGLOBIN 30.4 pg (27.0-33.0); MEAN CORPUSCULAR HGB CONC 33.2 g/dL (32.0-36.0); MEAN CORPUSCULAR VOLUME 91.4 fL (79-99); MONOCYTES # (AUTO) 0.2 K/uL (0.1-1.0); MONOCYTES % (AUTO) 7.2 % (3.0-13.0); NEUTROPHILS # (AUTO) 1.3 K/uL (1.8-7.7); NEUTROPHILS % (AUTO) 41.7 % (40.0-77.0); PLATELET COUNT (AUTO) 29 K/uL (130-400); RED BLOOD CELL COUNT(AUTO) 3.59 MIL/uL (4.00-5.50); RED CELL DISTRIBUTION WIDTH 18.6 % (11.0-15.5); WHITE BLOOD COUNT (AUTO) 3.1 K/uL (4.8-10.8)
[2024-01-15 22:43] LABS: INFLUENZA TYPE B Positive For Type B (NEGATIVE)
[2024-01-15 22:44] LABS: APPEARANCE,URINE CLEAR (CLEAR); BILIRUBIN,URINE NEGATIVE (NEGATIVE); COLOR,URINE LIGHT-YELLOW (YELLOW); GLUCOSE, URINE (UA) NEGATIVE (NEGATIVE); KETONES,URINE NEGATIVE (NEGATIVE); LEUKOCYTE ESTERASE ,URINE NEGATIVE Leu/uL (NEGATIVE); NITRATE,URINE NEGATIVE (NEGATIVE); PH,URINE 6.5 (5.0-8.0); PROTEIN,URINE 70 mg/dL (NEGATIVE); UROBILINOGEN,URINE 0.2 mg/dL (0.2-1.0)
[2024-01-15 22:45] LABS: ADD UA MICROSCOPIC YES
[2024-01-15 22:49] LABS: BACTERIA,URINE FEW /HPF (None Seen); MUCUS,URINE RARE LPF (None Seen); RBC,URINE 0-1 /HPF (0-1); SQUAMOUS EPITHELIAL CELL,UR RARE /HPF (0-2)
[2024-01-15 22:51] LABS: CREATININE 0.8 mg/dL (0.5-1.0); POTASSIUM 3.8 mmol/L (3.5-5.1)
[2024-01-15 22:55] LABS: ALBUMIN 2.4 g/dL (3.5-5.0); BILIRUBIN,TOTAL 2.7 mg/dL (0.2-1.0); TOTAL PROTEIN, SERUM 7.4 g/dL (6.0-8.3)
[2024-01-16 00:32] VITALS: BP 113/75; PULSE 73; RESP 18; TEMP 98.4; O2SAT 96
== END 2024-01-16 00:44 | disposition home or self-care (01) ==
LOC: EDH 20:44
DX: J10.1 Influenza due to other identified influenza virus with other respiratory manifestations (principal); D64.9 Anemia, unspecified; D69.6 Thrombocytopenia, unspecified; R52 Pain, unspecified; E11.9 Type 2 diabetes mellitus without complications; I10 Essential (primary) hypertension; Z20.822 Contact with and (suspected) exposure to COVID-19; Z79.899 Other long term (current) drug therapy; Z98.890 Other specified postprocedural states
CPT/HCPCS: 99284; 96374; 87426; 80053; 83690; 85025; 87880; 87804 ×2; 81001; 81025; 36415; J7030; J2405